=== PATIENT | female | born 1990 | race Caucasian/White ===

== ENCOUNTER 2021-07-26 15:32 | Emergency (ER) | payer SELFPAY ==
[~2021-07-26] VITALS: Ht 165.1 cm; Wt 68.0 kg
[2021-07-26 16:36] VITALS: BP 123/85
--- NOTE | 2021-07-26 16:46 | NUR ---
TENT6
--- NOTE | 2021-07-26 16:50 | NUR ---
C/O COUGH, 8/10 GUSMAN, FEVER, RUNNY NOSE, BODY ACHE X 3 DAYS, SORE THROAT X YESTERDAY. TOOK IBUPROFEN 1 HOURS AGO. TEMP 97.3 AT THIS TIME.
[2021-07-26] MEDS ORDERED: PROM118S5 PO (16:54)
[2021-07-26] MEDS ORDERED: NAPR-54 PO (16:54)
[2021-07-26] MEDS ORDERED: PHEN177S23 PO (16:54)
--- NOTE | 2021-07-26 18:25 | NUR ---
COVID PCR SWAB DONE.
[2021-07-26 18:29] VITALS: BP 123/85
--- NOTE | 2021-07-26 18:29 | NUR ---
Patient discharged with v/s stable. Written and verbal after care instructions given and explained. Patient alert, oriented and verbalized understanding of instructions. Ambulatory with steady gait. All questions addressed prior to discharge. ID band removed. Patient advised to follow up with PMD. Rx of NAPROSYN, CHLORASEPTIC 177MI, PROMETHAZINR given. Patient educated on indication of medication including possible reaction and side effects. Opportunity to ask questions provided and answered.
--- NOTE | 2021-07-26 18:36 | NUR ---
Vamshi tang in [facility] - 07/26/21 at 1854 by [email or web address] COVID PCR SWAB DONE.
== END 2021-07-26 18:29 | disposition home or self-care (01) ==
LOC: MED 15:32
DX: U07.1 COVID-19 (principal)
CPT/HCPCS: 99283; U0003

== ENCOUNTER 2022-12-09 16:13 | Emergency (ER) | payer SELFPAY ==
[~2022-12-09] VITALS: Ht 167.6 cm; Wt 81.6 kg
[~2022-12-09 16:13] MED LIST: NAPR-54 PO; PHEN177S23 PO; PROM118S5 PO
[2022-12-09 17:13] VITALS: BP 131/84
[2022-12-09 18:29] LABS: BILIRUBIN,URINE NEGATIVE (NEGATIVE); BLOOD, URINE 2+ (NEGATIVE); COLOR,URINE YELLOW (YELLOW); LEUKOCYTE ESTERASE ,URINE TRACE (NEGATIVE); NITRITE, URINE NEGATIVE (NEGATIVE); UGLUCOSE NEGATIVE (NEGATIVE)
[2022-12-09 18:30] LABS: APPEARANCE,URINE HAZY (CLEAR)
[2022-12-09 18:42] LABS: RBC,URINE 0-5 /HPF (0-5)
--- NOTE | 2022-12-09 20:25 | NUR ---
Patient discharged with v/s stable. Written and verbal after care instructions given and explained. Patient verbalized understanding. Ambulatory with steady gait. All questions addressed prior to discharge. Advised to follow up with PMD.
== END 2022-12-09 20:25 | disposition home or self-care (01) ==
LOC: MED 16:13
DX: O20.0 Threatened abortion (principal); R03.0 Elevated blood-pressure reading, without diagnosis of hypertension; Z3A.01 Less than 8 weeks gestation of pregnancy; Z88.0 Allergy status to penicillin; Z79.899 Other long term (current) drug therapy
CPT/HCPCS: 36415; 81001; 84702; 99283